=== PATIENT | female | born 1980 | race African-American/Black ===

== ENCOUNTER 2022-12-12 15:50 | Emergency (ER) | payer MEDICAID ==
[~2022-12-12] VITALS: Ht 165.1 cm; Wt 113.6 kg
[~2022-12-12 15:50] MED LIST: ACET-66 PO; DIPH-1243 PO
[2022-12-12 19:14] LABS: BASOPHILS % (AUTO) 0.4 % (0.0-2.0); EOSINOPHILS % (AUTO) 8.3 % (1.0-6.0); HEMATOCRIT 35.5 % (36-46); HEMOGLOBIN 11.4 g/dL (12.0-16.0); LYMPHOCYTES # (AUTO) 2.1 K/uL (1.0-4.8); LYMPHOCYTES % (AUTO) 26.1 % (22.0-44.0); MEAN CORPUSCULAR HEMOGLOBIN 29.3 pg (26.0-34.0); MEAN CORPUSCULAR HGB CONC 32.2 G/dL (31.0-37.0); MEAN CORPUSCULAR VOLUME 91 fL (80-100); MONOCYTES # (AUTO) 1.1 K/uL (0.1-1.0); MONOCYTES % (AUTO) 13.6 % (2.0-9.0); NEUTROPHILS # (AUTO) 4.2 K/uL (1.8-7.7); NEUTROPHILS % (AUTO) 51.6 % (40.0-70.0); PLATELET COUNT (AUTO) 287 K/uL (150-450); RED CELL DISTRIBUTION WIDTH 13.9 % (11.5-14.5)
[2022-12-12 19:24] LABS: ANION GAP 6 mmol/L (8-16); CALCIUM, TOTAL 9.3 mg/dL (8.8-10.5); CARBON DIOXIDE 29 mmol/L (22-29); CHLORIDE 105 mmol/L (98-107); CREATININE 0.61 mg/dL (0.60-1.30); GLUCOSE,RANDOM 93 mg/dL (70-110); POTASSIUM 5.1 mmol/L (3.5-5.1); SODIUM SERUM 140 mmol/L (136-145); UREA NITROGEN, BLOOD 14 mg/dL (7-18)
[2022-12-12 19:27] LABS: GLOMERULAR FILTR. RATE CALC > 60 mL/min (>60)
[2022-12-12 19:35] LABS: ALANINE AMINOTRANSFERASE 61 U/L (12-78); ALBUMIN 3.4 g/dL (3.4-5.0); ALKALINE PHOSPHATASE 108 U/L (46-116); ASPARTATE AMINOTRANSFERASE 26 U/L (15-37); BILIRUBIN,TOTAL 0.2 mg/dL (0.1-1.0); HCG,QUANTITATIVE < 1 mIU/mL (0-6); TOTAL PROTEIN, SERUM 7.6 g/dL (6.4-8.2)
[2022-12-12 19:38] LABS: B-TYPE NATRIURETIC PEPTIDE 8 pg/mL (0-100)
[2022-12-12] MEDS ORDERED: FUROSEMIDE 20 MG TABLET PO ONE (19:45)
[2022-12-12] MEDS ORDERED: FURO20 PO (19:54)
[2022-12-12 19:55] VITALS: BP 132/85
== END 2022-12-12 20:04 | disposition home or self-care (01) ==
LOC: EMS 15:57
DX: R60.9 Edema, unspecified (principal); F19.20 Other psychoactive substance dependence, uncomplicated; M19.90 Unspecified osteoarthritis, unspecified site
CPT/HCPCS: 80053; 83880; 84702; 85025; 99283

== ENCOUNTER 2023-08-05 08:34 | Emergency (ER) | payer MEDICAID, OTHER ==
[~2023-08-05] VITALS: Ht 162.6 cm; Wt 109.0 kg
[~2023-08-05 08:34] MED LIST changes: -ACET-66 PO; -DIPH-1243 PO; +FURO20 PO
[2023-08-05 08:42] VITALS: BP 99/58; PULSE 78; RESP 14; TEMP 98.7
[2023-08-05 09:05] LABS: COVID AG,FIA SOURCE NASAL SWAB
[2023-08-05 09:33] LABS: INFLUENZA TYPE A NEGATIVE FOR TYPE A (NEGATIVE); INFLUENZA TYPE B NEGATIVE FOR TYPE B (NEGATIVE); SARS-COV2 (COVID) ANTIGEN,FIA Negative (Negative)
[2023-08-06] MEDS ORDERED: PSEU120T61 PO (12:10)
[2023-08-06] MEDS ORDERED: FURO20TA4 PO (14:07)
== END 2023-08-05 10:14 | disposition home or self-care (01) ==
LOC: EMS 08:34
DX: J06.9 Acute upper respiratory infection, unspecified (principal); R51.9 Headache, unspecified; M19.90 Unspecified osteoarthritis, unspecified site; Z91.013 Allergy to seafood; Z20.822 Contact with and (suspected) exposure to COVID-19
CPT/HCPCS: 87804; 99283

== ENCOUNTER 2023-08-06 09:41 | Emergency (ER) | payer OTHER ==
[~2023-08-06] VITALS: Ht 165.1 cm; Wt 118.0 kg
[2023-08-06 09:55] VITALS: TEMP 99.1
[2023-08-06 10:48] VITALS: BP 135/72; PULSE 98; RESP 18
[2023-08-06] MEDS ORDERED: PSEU120T61 PO (12:10)
[2023-08-06] MEDS ORDERED: FURO20TA4 PO (14:07)
== END 2023-08-06 16:08 | disposition home or self-care (01) ==
LOC: EMS 09:47
DX: J06.9 Acute upper respiratory infection, unspecified (principal); Z91.013 Allergy to seafood
CPT/HCPCS: 99282; Z7502